=== PATIENT | male | born 1960 | race Caucasian/White ===

== ENCOUNTER 2016-12-08 15:12 | Outpatient (CLI) | payer OTHER ==
--- NOTE | 2016-12-08 18:19 | RAD ---
FOUR VIEWS CERVICAL SPINE: Date: 12-08-16 History: Cervical disc degenerative change. Follow up neck surgery on 11-26-16. FINDINGS: No prior studies are available for comparison. C1 to cervicothoracic junction is seen on the lateral view. There is straightening of the normal cer vical lordotic curvature. There are post-surgical changes related to anterior cervical fusion at the C5-6-7 levels with anterior plates and screws transfixing this level. Intradiscal prostheses are pr esent. No hardware complication is appreciated. There is no fracture or subluxation identified. The vertebral body heights as well as intervertebral disc spaces are within normal limits. Prevertebral soft tissues are also within normal limits. IMPRESSION: Post-surgical change related to anterior cervical fusion at the C5-6 and C6-7 levels. POS: [facility]
== END 2016-12-08 15:13 | disposition home or self-care (01) ==
LOC: TBSIIMAG 15:12
PROVIDERS: ATTEND Physician Assistant
DX: M50.30 Other cervical disc degeneration, unspecified cervical region (principal); Z98.890 Other specified postprocedural states
CPT/HCPCS: 72040

== ENCOUNTER 2017-01-22 13:36 | Outpatient (CLI) | payer OTHER ==
--- NOTE | 2017-01-22 14:42 | RAD ---
CERVICAL SPINE 2 VIEWS: HISTORY: M50.30, cervical disk degeneration. COMPARISON: C-spine 12/08/16. FINDINGS: The ACDF is unchanged in appearance. There are left carotid bulb calcifications. IMPRESSION: Unchanged examination of the neck without hardware complication. POS: [facility]
== END 2017-01-22 13:37 | disposition home or self-care (01) ==
LOC: TBSIIMAG 13:36
PROVIDERS: ATTEND Neurological Surgery
DX: M50.30 Other cervical disc degeneration, unspecified cervical region (principal)
CPT/HCPCS: 72040

== ENCOUNTER 2019-05-24 13:32 | Emergency (ER) | payer OTHER ==
[2019-05-24 14:14] LABS: #Basophils 0.1 thou/uL (0.0-0.2); #Eosinphils 0.1 thou/uL (0.0-0.7); #Lymphocytes 0.9 thou/uL (1.20-3.40); #Monocytes 0.5 thou/uL (0.11-0.59); %Basophils 0.9 % (0.0-1.0); %Eosinophils 1.6 % (0.0-10.0); %Lymphocytes 16.5 % (21.0-51.0); %Monocytes 8.7 % (0.0-10.0); %Neutrophils 72.3 % (42.0-75.0); Hemoglobin 10.8 g/dL (14.0-18.0); Mean Corpuscular HGB CONC 32.2 g/dL (32.0-36.0); Mean Corpuscular Hemoglobin 27.5 pg (27.0-31.0); Mean Corpuscular Volume 85.4 fL (78.0-98.0); Mean Platelet Volume 8.4 fL (7.4-10.4); Platelet Count 162 thou/uL (130-400); RBC Distribution Width 15.1 % (11.5-14.5); White Blood Cell (WBC) Count 5.6 thou/uL (4.8-10.8)
[2019-05-24] MEDS ORDERED: Morphine 4 MG/ML VIAL ONE ×2 (14:21→15:45)
[2019-05-24 14:34] LABS: ALT (SGPT) 96 U/L (8-55); AST (SGOT) 77 U/L (5-34); Albumin 3.5 g/dL (3.5-5.0); Alkaline Phosphatase 532 U/L (40-110); Anion Gap 15 mmol/L (10-20); BUN (Urea Nitrogen) 18 mg/dL (8.4-25.7); Bilirubin, Total 0.2 mg/dL (0.2-1.2); Calc. Creatinine Clearance 0 mL/min (70-130); Calcium 9.5 mg/dL (7.8-10.44); Carbon Dioxide 23 mmol/L (22-29); Chloride 103 mmol/L (98-107); Estimated GFR-MDRD 84; Globulin 3.6 g/dL (2.4-3.5); Glucose 296 mg/dL (70-105); Potassium 5.5 mmol/L (3.5-5.1); Protein, Total 7.1 g/dL (6.0-8.3); Sodium 135 mmol/L (136-145)
[2019-05-24 14:35] LABS: PTT 31.3 SEC (22.9-36.1); Prothrombin Time 13.2 SEC (12.0-14.7)
[2019-05-24 14:36] LABS: D-Dimer Test 1.01 *mcg/mL (0.27-0.43)
[2019-05-24] MEDS ORDERED: Iopamidol 370 76% 100 ML VIAL ONE (14:47)
--- NOTE | 2019-05-24 14:47 | RAD ---
XR Chest 1 View Portable HISTORY: Syncope COMPARISON: 06/15/2015 FINDINGS: The heart size is normal. The lungs are well expanded without focal areas of consolidation, pneumothorax or pleural effusions. IMPRESSION: No radiographic evidence of acute cardiopulmonary process.
--- NOTE | 2019-05-24 14:48 | RAD ---
XR Pelvis AP STANDARD HISTORY: Fall, left hip pain FINDINGS: No fracture or dislocation is identified.
--- NOTE | 2019-05-24 14:48 | RAD ---
Left hip 2 views HISTORY: Fall. Injury. FINDINGS: Mild joint space narrowing and osteophytosis. Femoral head contour is maintained. No acute fracture or dislocation. IMPRESSION : Very mild osteoarthritic changes left hip.
[2019-05-24 14:54] LABS: CK (CPK) 24 U/L (30-200); Lipase 26 U/L (8-78)
--- NOTE | 2019-05-24 16:39 | CT ---
CT ANGIOGRAM THORAX WITH IV CONTRAST AND 3D RECONSTRUCTIONS: 05/24/19 HISTORY: Syncope and falling this morning. COMPARISON: None. FINDINGS: No filling defects are seen in the pulmonary arteries to suggest a pulmonary +embolus. There are emph ysematous changes within the lungs bilaterally, greater in the upper lobes with bibasilar atelectasis . No discrete pulmonary nodule, mass, or pleural effusion is seen. The thoracic aorta is normal in caliber without evidence of an aortic dissection. Minimal scattered a therosclerotic plaque and calcifications are seen in the thoracic aorta and visualized upper abdomina l aorta. Vascular calcifications are seen in the coronary arteries. Mildly prominent lymph node are seen in the region of the AP window and in a pretracheal location whi ch measured just less than 1 cm and are not enlarged by CT size criteria. The distal esophagus does a ppear mildly thickened. The stomach is distended with a small amount of fluid, gas as well as particu late matter which may be related to recent ingestion of a meal. There is partial visualization of a s tent within the region of the pylorus of the stomach and extending into the region of the duodenum wi th mild thickening adjacent to the stent. There is a low density area seen near the fundus of the stomach which may represent fluid within a fo ld involving the stomach in this region. A small adjacent fluid collection cannot be entirely exclude d, but this is difficult to evaluate as this exam was obtained in arterial phase of imaging and no GI contrast was utilized. There is partial visualization of an endostent in the common duct. There is evidence of pneumobilia. The portal or hepatic veins are not opacified for further evaluation, but there is diminished attenua tion in the region of the portal confluence which could be related to mild edema in this region. The spleen is enlarged measuring 15.8 cm in AP dimensions. A few prominent tubular serpiginous vessel s are also visualized adjacent to the spleen and in the region of the splenic hilum and anteriorly pr obably related to varices. Splenic granulomata are visualized. Multiple calcifications are seen in the visualized portions of the pancreas likely attributable to se quela of prior pancreatitis. No suspicious lytic or sclerotic osseous lesions are identified. Postsurgical changes lower cervical spine are partially visualized. There is slight wedge shaped deformity of the T12 vertebral body whic h could be related to physiological wedging or possibly related to minimal compression deformity of indeterminate age. IMPRESSION: 1. Distention of the stomach with mild thickening of the caal of the stomach. Fluid and particulate material is seen within the stomach, and there is partial visualization of a stent in the region of t he pylorus of the stomach and extending into the duodenum. There is thickening in the region of the l imited proximal portion of the duodenum and pylorus of the stomach which could be related to neoplast ic process. Thickening of the caal of the stomach could be related to a gastric outlet obstruction. However, this would be better evaluated with endoscopy. 2. Splenomegaly with partial visualization of varices. 3. Multiple calcifications in limited visualized pancreas, probably related to sequela of prior pancr eatitis. 4. Hypodense fluid collection adjacent to the gastric antrum. This likely represents prominent fold within the stomach with associated fluid as opposed to an adjacent fluid collection. This is difficul t to further evaluate without IV contrast. 5. Pneumobilia with endostent in place. There is diminished attenuation in the region of the ger he patis which could be related to a small amount of fluid in this region. This is difficult to evaluate given arterial phase of imaging. Follow-up CT abdomen with IV contrast in portal venous phase of rehan ging would be helpful for further evaluation. 6. Evidence of COPD. 7. No CT evidence of a pulmonary embolus. POS: [facility]
== END 2019-05-24 17:12 | disposition home or self-care (01) ==
LOC: ERS 13:32
DX: M25.552 Pain in left hip (principal); K63.89 Other specified diseases of intestine; R55 Syncope and collapse; I25.2 Old myocardial infarction; E11.9 Type 2 diabetes mellitus without complications; F17.210 Nicotine dependence, cigarettes, uncomplicated; W01.10XA Fall on same level from slipping, tripping and stumbling with subsequent striking against unspecified object, initial encounter; Y92.009 Unspecified place in unspecified non-institutional (private) residence as the place of occurrence of the external cause
CPT/HCPCS: 71045; 71275; 72170; 80053; 82550; 83690; 83880; 84484; 85025; 85379; 85610; 85730; 93005; 96361; 96374; 96376; J2270; Q9967

== ENCOUNTER 2020-10-23 12:00 | Inpatient (IN) | payer MEDICAID, OTHER ==
[2020-10-23 14:42] LABS: #Lymphocytes 0.9 thou/uL (1.20-3.40); #Monocytes 0.4 thou/uL (0.11-0.59); #Neutrophils 2.7 thou/uL (1.40-6.50); %Basophils 0.1 % (0.0-1.0); %Eosinophils 0.5 % (0.0-10.0); %Lymphocytes 21.5 % (21.0-51.0); %Monocytes 9.3 % (0.0-10.0); %Neutrophils 68.6 % (42.0-75.0); Mean Corpuscular HGB CONC 33.3 g/dL (32.0-36.0); Mean Corpuscular Hemoglobin 28.6 pg (27.0-31.0); Mean Corpuscular Volume 85.9 fL (78.0-98.0); Mean Platelet Volume 9.2 fL (7.4-10.4); Platelet Count 84 thou/uL (130-400); RBC Distribution Width 16.2 % (11.5-14.5); Red Blood Cell (RBC) Count 3.16 mill/uL (4.70-6.10)
[2020-10-23 14:59] LABS: ALT (SGPT) 21 U/L (8-55); AST (SGOT) 27 U/L (5-34); Albumin 2.3 g/dL (3.4-4.8); Alkaline Phosphatase 464 U/L (40-110); Anion Gap 8 mmol/L (10-20); BUN (Urea Nitrogen) 9 mg/dL (8.4-25.7); Bilirubin, Total 0.7 mg/dL (0.2-1.2); Calc. Creatinine Clearance 0 mL/min (70-130); Calcium 7.9 mg/dL (7.8-10.44); Carbon Dioxide 25 mmol/L (23-31); Chloride 107 mmol/L (98-107); Globulin 3.8 g/dL (2.4-3.5); Glucose 176 mg/dL (80-115); Protein, Total 6.1 g/dL (5.8-8.1); Sodium 137 mmol/L (136-145)
[2020-10-23 15:10] LABS: Potassium 2.6 mmol/L (3.5-5.1)
[2020-10-23] MEDS ORDERED: Morphine 4 MG/ML VIAL ONE ×2 (16:17→19:53)
[2020-10-23] MEDS ORDERED: Ondansetron PF 4 MG/2 ML Vial ONE (16:17)
[2020-10-23] MEDS ORDERED: Magnesium 2 GM/50 ML BAG (IN WATER) ONE (16:17)
[2020-10-23 16:25] LABS: Magnesium 1.5 mg/dL (1.6-2.6)
[2020-10-23] MEDS ORDERED: Potassium Chloride 40 MEQ in Sodium Chloride 0.9% 250 ML 250 ML IVPB SCH (16:30)
[2020-10-23] MEDS ORDERED: Potassium Chloride 20 MEQ TAB ONE (16:34)
[2020-10-23] MEDS ORDERED: Promethazine HCl 25 MG/ML VIAL ONE (18:09)
[2020-10-23 18:46] LABS: SARS-CoV-2 NAA Rapid Test DETECTED (NotDetected)
[2020-10-23] MEDS ORDERED: Ondansetron ODT 4 MG TAB PO PRN (20:29)
[2020-10-23] MEDS ORDERED: Acetaminophen 650 MG Suppository PR PRN (20:29)
[2020-10-23] MEDS ORDERED: Dextrose 5% in Water 1,000 ML IV PRN (20:29)
[2020-10-23] MEDS ORDERED: Dextrose 50% Abboject 50 ML SYRINGE SLOW IVP PRN (20:29)
[2020-10-23 21:27] LABS: BUN (Urea Nitrogen) 6 mg/dL (8.4-25.7); Calc. Creatinine Clearance 0 mL/min (70-130); Calcium 7.6 mg/dL (7.8-10.44); Carbon Dioxide 14 mmol/L (23-31); Chloride 112 mmol/L (98-107); Glucose 184 mg/dL (80-115); Sodium 136 mmol/L (136-145)
[2020-10-23 21:28] LABS: Anion Gap 14 mmol/L (10-20)
[2020-10-23 21:59] VITALS: BMI 18.3
[2020-10-23] MEDS: Enoxaparin Sodium 40 MG/0.4 ML SYRINGE SC SCH (22:03)
[2020-10-23] MEDS: Morphine 2 MG/ML VIAL SLOW IVP PRN (22:11)
[2020-10-23] MEDS: HumaLOG 300 UNITS/3 ML VIAL SC PRN (22:24)
[2020-10-23] MEDS: Acetaminophen 325 MG TAB PO PRN (23:43)
[2020-10-23] MEDS: Ondansetron PF 4 MG/2 ML Vial IVP PRN (23:44)
[2020-10-24] MEDS ORDERED: REMDESIVIR 200 MG in Sodium Chloride 0.9% 250 ML 210 ML IV SCH (01:00)
[2020-10-24] MEDS: Sodium Chloride 0.9% 1,000 ML IV SCH ×3 (01:00→20:34)
[2020-10-24] MEDS: Morphine 2 MG/ML VIAL SLOW IVP PRN ×4 (02:29→20:35)
[2020-10-24 04:47] LABS: #Monocytes 0.3 thou/uL (0.11-0.59); %Eosinophils 1.2 % (0.0-10.0); %Lymphocytes 28.9 % (21.0-51.0); %Monocytes 10.2 % (0.0-10.0); %Neutrophils 58.7 % (42.0-75.0); Hemoglobin 7.7 g/dL (14.0-18.0); Mean Corpuscular HGB CONC 33.9 g/dL (32.0-36.0); Mean Corpuscular Hemoglobin 29.3 pg (27.0-31.0); Mean Corpuscular Volume 86.4 fL (78.0-98.0); Mean Platelet Volume 9.4 fL (7.4-10.4); Platelet Count 71 thou/uL (130-400); RBC Distribution Width 16.2 % (11.5-14.5); Red Blood Cell (RBC) Count 2.64 mill/uL (4.70-6.10); White Blood Cell (WBC) Count 3.4 thou/uL (4.8-10.8)
[2020-10-24 05:00] LABS: Anion Gap 10 mmol/L (10-20); BUN (Urea Nitrogen) 8 mg/dL (8.4-25.7); Calc. Creatinine Clearance 86 mL/min (70-130); Calcium 7.4 mg/dL (7.8-10.44); Carbon Dioxide 19 mmol/L (23-31); Chloride 114 mmol/L (98-107); Glucose 107 mg/dL (80-115); Iron 12 ug/dL (65-175); Iron Binding Capacity, Total 175 mcg/dL (261-462); Potassium 3.6 mmol/L (3.5-5.1); Sodium 139 mmol/L (136-145)
[2020-10-24 05:02] LABS: Iron 11 ug/dL (65-175); Iron Binding Capacity, Total 174 mcg/dL (261-462)
[2020-10-24] MEDS ORDERED: Electrolyte Replacement Protocol 1 EACH FS SCH (07:15)
[2020-10-24 08:32] LABS: Magnesium 1.7 mg/dL (1.6-2.6)
[2020-10-24] MEDS: Cholecalciferol (Vitamin D3) 400 UNITS TAB PO SCH (08:35)
[2020-10-24] MEDS: Ascorbic Acid 500 mg Chewable Tablet PO SCH (08:35)
[2020-10-24] MEDS: Zinc Sulfate 220 MG CAP PO SCH (08:35)
[2020-10-24] MEDS: Topiramate 25 MG TAB PO SCH (08:35)
[2020-10-24] MEDS: Pantoprazole 40 MG VIAL IVP SCH (08:36)
[2020-10-24] MEDS ORDERED: Magnesium 2 GM/50 ML 2 GM in Premix Bag 1 BAG IVPB SCH (09:00)
[2020-10-24] MEDS ORDERED: Dexamethasone 4 mg/ml Vial SLOW IVP SCH (09:00)
[2020-10-24] MEDS ORDERED: Albuterol Sulfate 2.5 mg/3 ml Neb NEB PRN (11:55)
[2020-10-24] MEDS ORDERED: Ivermectin 3 MG TAB PO SCH (12:00)
[2020-10-24] MEDS ORDERED: Ketorolac Tromethamine 30 MG/ML VIAL IVP SCH (12:00)
[2020-10-24] MEDS ORDERED: Albuterol 200 PUFF (6.7GM INHALER) INH PRN (12:25)
[2020-10-24] MEDS: Dexamethasone 10 MG/ML VIAL SLOW IVP SCH (13:03)
[2020-10-24] MEDS: HumaLOG 300 UNITS/3 ML VIAL SC PRN ×3 (13:04→20:36)
[2020-10-24] MEDS: Ferrous Sulfate 325 MG TAB PO SCH (16:25)
[2020-10-24] MEDS: Ketorolac Tromethamine 30 MG/ML VIAL IVP SCH (16:53)
[2020-10-24] MEDS: Enoxaparin Sodium 40 MG/0.4 ML SYRINGE SC SCH (20:35)
[2020-10-24] MEDS: Ondansetron PF 4 MG/2 ML Vial IVP PRN (20:35)
[2020-10-24] MEDS ORDERED: Melatonin 3 MG TAB PO PRN (22:42)
[2020-10-25] MEDS: Dexamethasone 10 MG/ML VIAL SLOW IVP SCH (00:44)
[2020-10-25] MEDS: Morphine 2 MG/ML VIAL SLOW IVP PRN ×3 (00:45→08:47)
[2020-10-25] MEDS: Ketorolac Tromethamine 30 MG/ML VIAL IVP SCH ×2 (00:56→06:51)
[2020-10-25] MEDS ORDERED: REMDESIVIR 100 MG in Sodium Chloride 0.9% 250 ML 230 ML IV SCH (01:00)
[2020-10-25] MEDS: Ondansetron PF 4 MG/2 ML Vial IVP PRN (04:42)
[2020-10-25 05:03] LABS: #Lymphocytes 0.3 thou/uL (1.20-3.40); #Monocytes 0.2 thou/uL (0.11-0.59); %Lymphocytes 12.9 % (21.0-51.0); %Monocytes 6.5 % (0.0-10.0); %Neutrophils 80.6 % (42.0-75.0); Mean Corpuscular HGB CONC 33.4 g/dL (32.0-36.0); Mean Corpuscular Hemoglobin 29.1 pg (27.0-31.0); Mean Corpuscular Volume 87.2 fL (78.0-98.0); Mean Platelet Volume 9.8 fL (7.4-10.4); Platelet Count 64 thou/uL (130-400); Red Blood Cell (RBC) Count 2.76 mill/uL (4.70-6.10); White Blood Cell (WBC) Count 2.4 thou/uL (4.8-10.8)
[2020-10-25] MEDS: HumaLOG 300 UNITS/3 ML VIAL SC PRN (05:24)
[2020-10-25] MEDS: Sodium Chloride 0.9% 1,000 ML IV SCH (06:52)
[2020-10-25] MEDS: Cholecalciferol (Vitamin D3) 400 UNITS TAB PO SCH (08:43)
[2020-10-25] MEDS: Ferrous Sulfate 325 MG TAB PO SCH (08:43)
[2020-10-25] MEDS: Ascorbic Acid 500 mg Chewable Tablet PO SCH (08:43)
[2020-10-25] MEDS: Zinc Sulfate 220 MG CAP PO SCH (08:47)
[2020-10-25] MEDS: Topiramate 25 MG TAB PO SCH (08:47)
[2020-10-25] MEDS: Pantoprazole 40 MG VIAL IVP SCH (08:47)
[2020-10-25 08:50] VITALS: BP 118/66; TEMP 97.7
[2020-10-25] MEDS ORDERED: Ivermectin 3 MG TAB PO SCH (09:00)
[2020-10-25] MEDS ORDERED: Lantus 1000 UNITS/10 ML VIAL SC SCH (09:00)
[2020-10-25] MEDS ORDERED: traMADol HCl 50 MG TAB PO PRN ×2 (09:19→09:32)
[2020-10-25] MEDS: Acetaminophen 325 MG TAB PO PRN (10:20)
== END 2020-10-25 11:19 | disposition home or self-care (01) | DRG 177 ==
LOC: ERS 12:00 → ERHOLD 20:02 → 2SE 21:14 → 2SW 10-25 04:16
PROVIDERS: ADMIT Internal Medicine; ATTEND Internal Medicine
PROC: 8E0ZXY6 Isolation (ICD-10-PCS; 2020-10-23)
PROC: XW033E5 Introduction of Remdesivir Anti-infective into Peripheral Vein, Percutaneous Approach, New Technology Group 5 (ICD-10-PCS; principal; 2020-10-24)
DX: U07.1 COVID-19 (principal); J12.82 Pneumonia due to coronavirus disease 2019; R64 Cachexia; Z68.1 Body mass index [BMI] 19.9 or less, adult; I25.10 Atherosclerotic heart disease of native coronary artery without angina pectoris; F17.210 Nicotine dependence, cigarettes, uncomplicated; E11.65 Type 2 diabetes mellitus with hyperglycemia; E83.42 Hypomagnesemia; D50.9 Iron deficiency anemia, unspecified; E88.09 Other disorders of plasma-protein metabolism, not elsewhere classified; D69.6 Thrombocytopenia, unspecified; E87.6 Hypokalemia; Z88.0 Allergy status to penicillin; Z91.041 Radiographic dye allergy status; Z79.4 Long term (current) use of insulin; I25.2 Old myocardial infarction; Z79.899 Other long term (current) drug therapy; Z90.49 Acquired absence of other specified parts of digestive tract; Z95.5 Presence of coronary angioplasty implant and graft; Z98.49 Cataract extraction status, unspecified eye
CPT/HCPCS: 0240U; 36415; 36416; 71046; 80048; 80053; 82728; 83540; 83550; 83735; 83880; 84484; 85025; 85379; 86140; 93005; 96365; 96366; 96367; 96375; 96376; C9113; J1100; J1650; J1815; J1885; J2270; J2405; J2550; J3475; J3480; J7050

== ENCOUNTER 2020-11-29 08:28 | Day surgery (SDC) | payer MEDICAID, OTHER ==
[2020-11-29] MEDS ORDERED: Sodium Chloride 0.9% 20 ML ONE (08:46)
[2020-11-29] MEDS ORDERED: Acetaminophen 325 MG TAB PO SCH (09:00)
[2020-11-29 16:01] VITALS: BP 132/61; TEMP 98.5
== END 2020-11-29 16:01 | disposition home or self-care (01) ==
LOC: ONC/OP 08:28
PROVIDERS: ATTEND Internal Medicine Gastroenterology
PROC: 30233N1 Transfusion of Nonautologous Red Blood Cells into Peripheral Vein, Percutaneous Approach (ICD-10-PCS; principal; 2020-11-29)
DX: D64.9 Anemia, unspecified (principal); Z88.0 Allergy status to penicillin; Z91.041 Radiographic dye allergy status
CPT/HCPCS: 36415; 36430; 86850; 86900; 86901; P9016